=== PATIENT | female | born 1995 | race Caucasian/White ===

== ENCOUNTER 2021-04-04 16:37 | Emergency (ER) | payer BC ==
[2021-04-04] MEDS ORDERED: Take Home: Cephalexin 500 MG Cap, 4 Cap Pack PO ONE (16:59)
--- NOTE | 2021-04-04 17:03 | EDM.PDOC ---
ED HPI GENERAL MEDICAL PROBLEM - General Chief Complaint: General Stated Complaint: Infected ear piercing Time Seen by Provider: 04/04/21 16:55 Source of Information: Reports: Patient History Limitations: Reports: No Limitations - History of Present Illness INITIAL COMMENTS - FREE TEXT/NARRATIVE: Annetta is a 25 year old female who presents with concerns of infection in her ear lobe. Got her ears pierced a month ago and has been doing well until yesterday. has been cleaning them with the product provided to them from the place she got them pierced. Noted her ear to be swollen and itchy and then it popped with pus noted. Feels tender. Left ear has been without concern. No fevers. No other concerns. Onset: Gradual Duration: Hour(s): Location: Reports: Head Quality: Reports: Ache, Other (itching) Severity: Mild Associated Symptoms: Reports: No Other Symptoms - Related Data Allergies Allergy/AdvReac Type Severity Reaction Status Date / Time No Known Allergies Allergy Verified 04/04/21 16:42 Home Meds: Home Meds cephALEXin [Cephalexin] 500 mg PO BID #12 tablet 04/04/21 [Rx] Past Medical History - Past Health History Medical/Surgical History: Denies Medical/Surgical History - Past Surgical History HEENT Surgical History: Reports: Other (See Below) Other HEENT Surgeries/Procedures: wisdom teeth surgery plus implants in mouth ~2014 Social & Family History - Family History Family Medical History: No Pertinent Family History - Tobacco Use Tobacco Use Status *Q: Never Tobacco User - Recreational Drug Use Recreational Drug Use: No ED ROS GENERAL - Review of Systems Review Of Systems: See Below Constitutional: Denies: Fever, Chills, Malaise, Weakness, Fatigue HEENT: Reports: Ear Pain. Denies: Ear Discharge, Rhinitis, Sinus Problem, Throat Pain Respiratory: Denies: Shortness of Breath Cardiovascular: Denies: Chest Pain Endocrine: Denies: Fatigue ED EXAM, GENERAL - Physical Exam Exam: See Below Exam Limited By: No Limitations General Appearance: Alert, WD/WN, No Apparent Distress Ears: Normal External Exam, Normal TMs Ear Exam: Right Ear: Other (right ear lobe mildly swollen, red, tender) Nose: Normal Inspection Throat/Mouth: Normal Inspection, Normal Oropharynx Head: Normocephalic Course - Vital Signs Last Recorded V/S: Last Vital Signs Temp 97.8 F 04/04/21 16:47 Pulse 109 H 04/04/21 16:47 Resp 16 04/04/21 16:47 BP 144/84 H 04/04/21 16:47 Pulse Ox 98 04/04/21 16:47 Departure - Departure Time of Disposition: 17:02 Disposition: Home, Self-Care 01 Condition: Good Clinical Impression: Infection of earlobe - Discharge Information *PRESCRIPTION DRUG MONITORING PROGRAM REVIEWED*: No *COPY OF PRESCRIPTION DRUG MONITORING REPORT IN PATIENT MICHELA: No Referrals: PCP,None [Primary Care Provider] - Additional Instructions: 1. Keep cleaning ear twice a day or more 2. Cephalexin 500 mg twice a day for 7 days 3. Follow up if any concerns. Sepsis Event Note (ED) - Evaluation Sepsis Screening Result: No Definite Risk - Focused Exam Vital Signs: Vital Signs Temp Pulse Resp BP Pulse Ox 04/04/21 16:47 97.8 F 109 H 16 144/84 H 98 04/04/21 16:40 97.8 F 109 H 16 144/84 H 98
== END 2021-04-04 17:08 | disposition home or self-care (01) ==
LOC: CC.ED 16:37
DX: L08.9 Local infection of the skin and subcutaneous tissue, unspecified (principal)
CPT/HCPCS: 99282; A9270-GY

== ENCOUNTER 2022-04-21 21:39 | Emergency (ER) | payer BC | END 2022-04-21 22:35 | disposition home or self-care (01) | LOC: CC.ED 21:39 | DX: S93.602A Unspecified sprain of left foot, initial encounter (principal); X50.1XXA Overexertion from prolonged static or awkward postures, initial encounter | CPT/HCPCS: 73630-LT; 99283 ==